=== PATIENT | male | born 1965 | race African-American/Black ===

== ENCOUNTER 2021-01-16 14:28 | Inpatient (IN) | payer OTHER ==
[2021-01-16 17:25] VITALS: BMI 15.0
[2021-01-16] MEDS ORDERED: NICOTINE POLACRILEX 2 MG GUM BC PRN (18:40)
[2021-01-16] MEDS ORDERED: MAGNESIUM HYDROX 2400MG/30ML ORAL SUSPENSION 30 ML CUP PO PRN (18:40)
[2021-01-16] MEDS ORDERED: ACETAMINOPHEN 325 MG TABLET (FP) PO PRN (18:40)
[2021-01-16] MEDS ORDERED: hydrOXYzine PAMOATE 25 MG CAPSULE (FP) PO PRN (18:40)
[2021-01-16] MEDS ORDERED: IBUPROFEN 400 MG TABLET (FP) PO PRN (18:40)
[2021-01-16] MEDS ORDERED: P-EPHED 60MG/TRIPROLIDI 2.5MG TABLET PO PRN (18:40)
[2021-01-16] MEDS ORDERED: guaiFENesin 200 MG/10 ML 10 ML UNIT-DOSE CUPS PO PRN (18:40)
[2021-01-16] MEDS ORDERED: MAGNESIUM CITRATE 300 ML BOTTLE PO PRN (18:40)
[2021-01-16] MEDS ORDERED: MAG HYDROX/AL HYDROX/SIMETH 30 ML UNIT-DOSE CUP PO PRN (18:40)
[2021-01-16] MEDS ORDERED: CLOTRIMAZOLE 10 MG TROCHE PO PRN (18:46)
[2021-01-16] MEDS ORDERED: WITCH HAZEL 50% (TUCKS) 40 PAD/JAR PAD TP PRN (18:48)
[2021-01-16] MEDS: THIAMINE HCL 100 MG TABLET (FP) PO SCH (21:50)
[2021-01-17] MEDS ORDERED: MAG HYDROX/ALH/SMC/DPHA/LIDO 240 ML MOUTHWASH MM PRN (09:56)
[2021-01-17] MEDS: PANTOPRAZOLE 40 MG TABLET PO SCH (10:14)
[2021-01-17] MEDS: PRENATAL VITAMINS W/ FOLIC ACID TABLET (FP) PO SCH (10:14)
[2021-01-17] MEDS: SULFAMETHOXAZOLE/TRIMETHOPRIM 800MG/160MG D.S. TABLET PO SCH (10:55)
[2021-01-17] MEDS: FLUCONAZOLE 200 MG PO SCH (11:51)
[2021-01-17 12:15] LABS: HEMATOCRIT 28.3 % (35.4-49); HEMOGLOBIN 9.5 GM/dL (11.7-16.9); MCH 30.1 pg (25.7-33.7); MCHC 33.7 g/dl (32.0-35.9); MEAN CELL VOLUME 89.2 fl (80-96); MEAN PLT VOLUME 9.5 fl (7.5-11.1); PLATELET COUNT 179 10^3/uL (134-434); RBC 3.17 M/mm3 (4.00-5.60); WHITE BLOOD COUNT 2.9 K/mm3 (4.0-10.0)
[2021-01-17 12:32] LABS: CALCIUM 7.6 mg/dL (8.5-10.1)
[2021-01-17 12:33] LABS: ALBUMIN 2.8 g/dl (3.4-5.0)
[2021-01-17 12:36] LABS: CREATININE 1.1 mg/dL (0.55-1.3)
[2021-01-17 12:37] LABS: BILIRUBIN,TOTAL 0.4 mg/dL (0.2-1); TOT PROT 7.2 g/dl (6.4-8.2)
[2021-01-17 13:27] LABS: SYPHILIS W/ RPR CONF REACTIVE (NONREACTIVE)
[2021-01-17] MEDS: BICTEGRAV/EMTRICIT/TENOFOV (BIKTARVY) 50-200-25 MG TABLET PO SCH (15:12)
[2021-01-17] MEDS: THIAMINE HCL 100 MG TABLET (FP) PO SCH (22:10)
[2021-01-17 23:19] LABS: PH,URINE 6.5 (5.0-8.0); URINE APPEARANCE CLEAR; URINE BILIRUBIN NEGATIVE (NEGATIVE); URINE COLOR YELLOW; URINE GLUCOSE (UA) NEGATIVE (NEGATIVE); URINE KETONE NEGATIVE (NEGATIVE); URINE LEUK ESTERASE NEGATIVE (NEGATIVE); URINE NITRITE NEGATIVE (NEGATIVE); URINE PROTEIN TRACE (NEGATIVE); URINE UROBILINOGEN 0.2 mg/dL (0.2-1.0)
[2021-01-18] MEDS: SULFAMETHOXAZOLE/TRIMETHOPRIM 800MG/160MG D.S. TABLET PO SCH (10:33)
[2021-01-18] MEDS: PRENATAL VITAMINS W/ FOLIC ACID TABLET (FP) PO SCH (10:33)
[2021-01-18] MEDS: PANTOPRAZOLE 40 MG TABLET PO SCH (10:33)
[2021-01-18] MEDS: FLUCONAZOLE 200 MG PO SCH (10:33)
[2021-01-18] MEDS: THIAMINE HCL 100 MG TABLET (FP) PO SCH (21:48)
[2021-01-19] MEDS: BICTEGRAV/EMTRICIT/TENOFOV (BIKTARVY) 50-200-25 MG TABLET PO SCH ×3 (00:18→18:53)
[2021-01-19] MEDS: SULFAMETHOXAZOLE/TRIMETHOPRIM 800MG/160MG D.S. TABLET PO SCH (10:23)
[2021-01-19] MEDS: FLUCONAZOLE 200 MG PO SCH (10:23)
[2021-01-19] MEDS: PRENATAL VITAMINS W/ FOLIC ACID TABLET (FP) PO SCH (10:23)
[2021-01-19] MEDS: PANTOPRAZOLE 40 MG TABLET PO SCH (10:24)
[2021-01-19] MEDS: LOPERAMIDE HCL 2 MG CAPSULE PO PRN (12:39)
[2021-01-19] MEDS: CALCIUM 500MG/VIT-D 200 UNITS COMBO TABLET (FP) PO SCH (23:57)
[2021-01-19] MEDS: THIAMINE HCL 100 MG TABLET (FP) PO SCH (23:57)
[2021-01-20 10:08] LABS: HEMATOCRIT 32.4 % (35.4-49); HEMOGLOBIN 10.7 GM/dL (11.7-16.9); MCH 29.6 pg (25.7-33.7); MEAN CELL VOLUME 89.7 fl (80-96); MEAN PLT VOLUME 8.7 fl (7.5-11.1); PLATELET COUNT 235 10^3/uL (134-434); RBC 3.61 M/mm3 (4.00-5.60); RDW 14.4 % (11.9-15.9)
[2021-01-20 10:14] LABS: IRON SERUM 111 ug/dL (50-175); TOTAL IRON BINDING CAPACITY 287 ug/dL (250-450)
[2021-01-20] MEDS: SULFAMETHOXAZOLE/TRIMETHOPRIM 800MG/160MG D.S. TABLET PO SCH (10:27)
[2021-01-20] MEDS: FLUCONAZOLE 200 MG PO SCH (10:27)
[2021-01-20] MEDS: CALCIUM 500MG/VIT-D 200 UNITS COMBO TABLET (FP) PO SCH ×2 (10:28→21:18)
[2021-01-20] MEDS: PRENATAL VITAMINS W/ FOLIC ACID TABLET (FP) PO SCH (10:28)
[2021-01-20] MEDS: PANTOPRAZOLE 40 MG TABLET PO SCH (10:28)
[2021-01-20] MEDS: LOPERAMIDE HCL 2 MG CAPSULE PO PRN ×2 (11:12→18:37)
[2021-01-20 11:43] LABS: ANISOCYTOSIS 1+; MACROCYTOSIS 0; PLATELET ESTIMATE NORMAL
[2021-01-20] MEDS ORDERED: ALBUTEROL SO4 0.083% IH SOL 2.5 MG/3 ML VIAL.NEB. NEB PRN (11:55)
[2021-01-20] MEDS: ALBUTEROL SO4 HFA INHALER IH PRN (11:59)
[2021-01-20] MEDS: BICTEGRAV/EMTRICIT/TENOFOV (BIKTARVY) 50-200-25 MG TABLET PO SCH (18:37)
[2021-01-20] MEDS: MELATONIN 5 MG TABLETS PO PRN (21:18)
[2021-01-20] MEDS: THIAMINE HCL 100 MG TABLET (FP) PO SCH (21:18)
[2021-01-21] MEDS: PANTOPRAZOLE 40 MG TABLET PO SCH (10:32)
[2021-01-21] MEDS: CALCIUM 500MG/VIT-D 200 UNITS COMBO TABLET (FP) PO SCH ×2 (10:32→21:46)
[2021-01-21] MEDS: PRENATAL VITAMINS W/ FOLIC ACID TABLET (FP) PO SCH (10:32)
[2021-01-21] MEDS: SULFAMETHOXAZOLE/TRIMETHOPRIM 800MG/160MG D.S. TABLET PO SCH (10:32)
[2021-01-21] MEDS: FLUCONAZOLE 200 MG PO SCH (10:32)
[2021-01-21] MEDS: ALBUTEROL SO4 HFA INHALER IH PRN ×2 (10:51→18:22)
[2021-01-21] MEDS: LOPERAMIDE HCL 2 MG CAPSULE PO PRN (11:27)
[2021-01-21] MEDS: BICTEGRAV/EMTRICIT/TENOFOV (BIKTARVY) 50-200-25 MG TABLET PO SCH (18:19)
[2021-01-21] MEDS: MELATONIN 5 MG TABLETS PO PRN (21:45)
[2021-01-21] MEDS: THIAMINE HCL 100 MG TABLET (FP) PO SCH (21:46)
[2021-01-22 07:05] VITALS: BP 97/67; PULSE 75; TEMP 98.1
[2021-01-22] MEDS ORDERED: PT OWN MED DRAWER 7, Y5N ONE (10:17)
[2021-01-22] MEDS: CALCIUM 500MG/VIT-D 200 UNITS COMBO TABLET (FP) PO SCH (10:52)
[2021-01-22] MEDS: SULFAMETHOXAZOLE/TRIMETHOPRIM 800MG/160MG D.S. TABLET PO SCH (10:52)
[2021-01-22] MEDS: PRENATAL VITAMINS W/ FOLIC ACID TABLET (FP) PO SCH (10:52)
[2021-01-22] MEDS: PANTOPRAZOLE 40 MG TABLET PO SCH (10:52)
[2021-01-22] MEDS: FLUCONAZOLE 200 MG PO SCH (10:52)
== END 2021-01-22 11:00 | disposition home or self-care (01) | DRG 895 ==
LOC: YASAS 14:28 → Y3W 17:45
PROVIDERS: ADMIT Allergy & Immunology; ATTEND Allergy & Immunology
PROC: HZ42ZZZ Group Counseling for Substance Abuse Treatment, Cognitive-Behavioral (ICD-10-PCS; principal; 2021-01-16)
DX: F14.20 Cocaine dependence, uncomplicated (principal); B20 Human immunodeficiency virus [HIV] disease; Z68.1 Body mass index [BMI] 19.9 or less, adult; F12.20 Cannabis dependence, uncomplicated; F17.210 Nicotine dependence, cigarettes, uncomplicated; J44.9 Chronic obstructive pulmonary disease, unspecified; K21.9 Gastro-esophageal reflux disease without esophagitis; D64.9 Anemia, unspecified; H55.00 Unspecified nystagmus; R63.4 Abnormal weight loss; Z86.19 Personal history of other infectious and parasitic diseases
CPT/HCPCS: 36415; 80053; 81003; 83540; 83550; 85025; 85027; 86593; 86780; 86803; 93005; 93010; C9803; U0003; U0005